=== PATIENT | male | born 1980 | race Caucasian/White ===

== ENCOUNTER 2016-11-16 14:35 | Outpatient (CLI) | payer OTHER | END 2016-11-16 14:36 | disposition home or self-care (01) | LOC: LAB 14:35 | PROVIDERS: ATTEND Nurse Practitioner Family | DX: R22.2 Localized swelling, mass and lump, trunk (principal) ==

== ENCOUNTER 2016-11-17 09:46 | Outpatient (CLI) | payer OTHER ==
--- NOTE | 2016-11-17 11:15 | CT ---
EXAM: CT of the chest with and without contrast History: Chest mass meters xyphoid process. Comparison: Chest radiograph 05/23/2017 Technique: Multiplanar CT images through the thorax were obtained with and without the administrati on of IV contrast Findings: Mild bilateral gynecomastia. Heart size is within normal limits. No pericardial effusio n. Great vessels are unremarkable. No pathologically enlarged thoracic lymph nodes. Apical predom inant paraseptal and centrilobular emphysema. Biapical lung scarring. No consolidated pneumonia. N o pleural fluid and no pneumothorax. No suspicious lung masses or lung nodules. Within the visualized upper abdomen, cholelithiasis. Small fat-containing umbilical hernia. No acu te osseous abnormalities. No abnormalities are seen in the palpable region of interest. Impression: 1. No acute intrathoracic process. 2. No abnormalities are seen in the region of interest. 3. Upper lobe predominant paraseptal and centrilobular emphysema. 4. Cholelithiasis.
== END 2016-11-17 09:47 | disposition home or self-care (01) ==
LOC: RAD 09:46
PROVIDERS: ATTEND Nurse Practitioner Family
DX: R22.2 Localized swelling, mass and lump, trunk (principal)

== ENCOUNTER 2017-02-06 10:04 | Emergency (ER) ==
[2017-02-06 10:08] VITALS: BP 131/87; TEMP 98.1; BMI 22.4
[2017-02-06] MEDS ORDERED: TORADOL IVP STA (10:24)
--- NOTE | 2017-02-06 10:26 | ED.PDOC ---
General ED Provider: Dr. JONATHAN LE Chief Complaint: Knee Pain/Injury Stated Complaint: patient is a 36 year old male who states that he dropped a bottle and when he tired to catch it he missed and it bounce up and hit him on inside of right knee. states now is swollen and having trouble bending it. Has not taken anything for the pain. Time Seen by Physician: 10:21 Mode of Arrival: Walk-In Information Source: Patient Exam Limitations: No limitations [facility] and Triage Documentation Reviewed and Agree: Yes Musculoskeletal Complaint Exam - Knee Pain Complaint/Exam Mechanism of Injury: Reports: Trauma Onset/Duration: 1 day Symptoms Are: Still present Onset of Pain: Reports: Immediate Initial Severity: Severe Current Severity: Severe Location: Reports: Discrete (right knee) Character: Reports: Aching, Throbbing Alleviating: Reports: None Aggravating: Reports: Movement, Weight bearing, Prolonged standing, Stairs Associated Signs and Symptoms: Reports: Swelling, Bruising Able to Bear Weight: Yes Related History: Denies: Similar episode, Occupational injury Septic Arthritis Risk Factors: Reports: None Gout Risk Factors: Reports: None Related Surgical History: Denies: Right Knee, Left Knee Knee Findings: Present: Swelling, Ecchymosis, Tenderness Tenderness: Present: Joint Viki Test Positive: No Cindy Test Positive: No Limited Range of Motion: Present: Active, Passive Differential Diagnoses: Contusion, Closed Fracture, Sprain, Strain Review of Systems - Review Of Systems Constitutional: Reports: No symptoms Eyes: Reports: No symptoms Ears, Nose, Mouth, Throat: Reports: No symptoms Respiratory: Reports: No symptoms Cardiac: Reports: No symptoms GI: Reports: No symptoms : Reports: No symptoms Musculoskeletal: Reports: Joint pain, Joint swelling Skin: Reports: Bruising Neurological: Reports: No symptoms Endocrine: Reports: No symptoms Hematologic/Lymphatic: Reports: No symptoms All Other Systems: Reviewed and Negative Past Medical History - Past Medical History Previously Healthy: Yes Endocrine: Reports: None Cardiovascular: Reports: None Respiratory: Reports: None Hematological: Reports: None Gastrointestinal: Reports: None Genitourinary: Reports: None Neuro/Psych: Reports: None Musculoskeletal: Reports: None Cancer: Reports: None Other Pertinent Past Medical History: Hernia - Surgical History General Surgical History: Reports: None - Family History Family History: Reports: None - Social History Smoking Status: Current every day smoker Hx Substance Use: No Alcohol Screening: None Physical Exam - Physical Exam Appearance: Ill-appearing Ill-appearing: Mild Pain Distress: Severe Respiratory: Airway patent, Breath sounds clear, Breath sounds equal, Respirations nonlabored Cardiovascular: RRR, Pulses normal, No rub, No murmur Musculoskeletal: Limited ROM (right knee ), Edema (right knee ) Skin: Warm (echomosis right knee) Neurological: Sensation intact, Oriented, Disoriented Interpretation - Radiology Interpretation Radiology Interpretation By: ED Physician Radiology Results: Negative Exam Interpreted: Other (right knee ) Re-Evaluation - Re-Evaluation Time of Re-Evaluation: 11:13 Status: Improved Pain Level: 5 /10 Critical Care Note - Critical Care Note Total Time (mins): 0 Course - Course Orders, Labs, Meds: Orders Category Date Time Status JORGE [ED JORGE WRAP] .ONCE EMERGENCY 02/06/17 10:25 Active ED CRUTCHES .ONCE EMERGENCY 02/06/17 10:25 Active ED IV/MEDIPORT/POWERPORT .ONCE EMERGENCY 02/06/17 10:24 Active Ice [ED APPLY ICE AFFECTED AREA] .ONCE EMERGENCY 02/06/17 10:25 Active 0.9 % Sodium Chloride [Saline Flush] MEDS 02/06/17 10:24 Active 1 syr IVF PRN PRN Ketorolac Tromethamine [Toradol] MEDS 02/06/17 10:24 Discontinued 30 mg IVP ONCE STA KNEE, RIGHT 4 VIEWS Stat RADS 02/06/17 10:21 Completed Medications Generic Name Dose Route Start Last Admin Trade Name Freq PRN Reason Stop Dose Admin Sodium Chloride 1 syr 02/06/17 10:24 02/06/17 10:44 Saline Flush IVF 1 syr PRN PRN Administration To flush IV Discontinued Medications Generic Name Dose Route Start Last Admin Trade Name Freq PRN Reason Stop Dose Admin Ketorolac Tromethamine 30 mg 02/06/17 10:24 02/06/17 10:42 Toradol IVP 02/06/17 10:25 30 mg ONCE STA Administration Vital Signs: Temp Pulse Resp BP Pulse Ox 02/06/17 10:05 98.1 F 75 18 131/87 96 Departure - Departure Time of Disposition: 11:13 Disposition: HOME SELF-CARE Discharge Problem: Injury of knee Instructions: Knee Pain (ED), Contusion in Adults (ED) Condition: Fair Pt referred to PMD for follow-up: Yes Additional Instructions: Take medications as prescribed. Follow up with PCP Use crutches as needed Keep leg elevated. Prescriptions: Ibuprofen [Motrin] 600 mg PO Q6H PRN #30 tablet PRN Reason: Analgesia Allergies/Adverse Reactions: Allergies Ivory soap Adverse Reaction (Uncoded 02/06/17 10:08) Home Medications: Ambulatory Orders Ibuprofen [Motrin] 600 mg PO Q6H PRN #30 tablet 02/06/17 Disposition Discussed With: Patient, Family
--- NOTE | 2017-02-06 10:42 | DI ---
EXAM: Four views of the right knee HISTORY: Right knee injury. COMPARISON: None FINDINGS: Medial and lateral compartments are normal. There is no fracture or dislocation. There i s no lytic or blastic lesion. Soft tissues are unremarkable. The patella is normal. IMPRESSION: No acute abnormality or displaced fracture of the right knee.
== END 2017-02-06 11:30 | disposition home or self-care (01) ==
LOC: ED 10:04
DX: S80.01XA Contusion of right knee, initial encounter (principal); M25.461 Effusion, right knee; W20.8XXA Other cause of strike by thrown, projected or falling object, initial encounter
CPT/HCPCS: 96374; 99283